=== PATIENT | female | born 1970 | race Caucasian/White ===

== ENCOUNTER 2020-01-04 20:53 | Emergency (ER) | payer SELFPAY ==
[~2020-01-04] VITALS: Ht 167.6 cm; Wt 74.8 kg
[2020-01-04] MEDS ORDERED: OLANZAPINE 10 MG VIAL IM ONE ×2 (20:59→21:00)
[2020-01-04] MEDS ORDERED: LORAZEPAM INJ 2 MG/ML VIAL ONE (20:59)
[2020-01-04] MEDS ORDERED: LORAZEPAM INJ 2 MG/ML VIAL IM ONE (21:00)
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
--- NOTE | 2020-01-04 21:04 | NUR ---
PT REC'D MEDICATION ORDERED.
--- NOTE | 2020-01-04 21:47 | NUR ---
INFORMATION TECHNOLOGY ASSISTANT IS AT THE BEDSIDE AND BLOOD HAS BEEN DRAWN.
[2020-01-04 21:51] LABS: BASOPHILS % (AUTO) 0.6 % (0.0-2.0); EOSINOPHILS % (AUTO) 1.8 % (0.0-6.0); HEMATOCRIT 39 % (33-45); HEMOGLOBIN 12.6 g/dL (11.5-14.8); LYMPHOCYTES # (AUTO) 1.1 /CMM (0.8-4.8); LYMPHOCYTES % (AUTO) 15.2 % (20.0-44.0); MEAN CORPUSCULAR HGB CONC 32 g/dl (31.0-36.0); MEAN CORPUSCULAR VOLUME 91 fL (82-100); MONOCYTES # (AUTO) 0.6 /CMM (0.1-1.30); MONOCYTES % (AUTO) 8.5 % (2.0-12.0); NEUTROPHILS # (AUTO) 5.5 /CMM (1.8-8.9); NEUTROPHILS % (AUTO) 73.9 % (43.0-81.0); PLATELET COUNT (AUTO) 253 /CMM (150-450); WHITE BLOOD COUNT (AUTO) 7.5 K/uL (4.3-11.0)
[2020-01-04 22:07] LABS: CALCIUM, SERUM 8.6 mg/dL (8.5-10.1); CARBON DIOXIDE 20 mmol/L (21-32); CHLORIDE 108 mmol/L (98-107); GLUCOSE 105 mg/dL (74-106); POTASSIUM 3.3 mmol/L (3.5-5.1); SODIUM SERUM 145 mmol/L (136-145); UREA NITROGEN, BLOOD 11 mg/dL (7-18)
[2020-01-04 22:13] LABS: ALANINE AMINOTRANSFERASE 21 U/L (12-78); ALBUMIN 3.6 g/dL (3.4-5.0); ALCOHOL, BLOOD 179 mg/dL (0-0); ALKALINE PHOSPHATASE 69 U/L (46-116); ASPARTATE AMINOTRANSFERASE 22 U/L (15-37); BILIRUBIN,DIRECT 0.1 mg/dL (0.0-0.2); BILIRUBIN,TOTAL 0.3 mg/dL (0.2-1.0); SALICYLATE 4.8 mg/dL (2.8-20.0); TOTAL PROTEIN, SERUM 7.6 g/dL (6.4-8.2)
[2020-01-04 22:16] LABS: ACETAMINOPHEN < 2 ug/ml (10-30)
--- NOTE | 2020-01-04 22:43 | NUR ---
STRAIGHT CATH DONE. APPROX 500ML DARK YELLOW URINE OUTPUT NOTED. SAMPLE SENT TO THE LAB.
[2020-01-04 22:55] LABS: APPEARANCE,URINE Clear (CLEAR); BILIRUBIN,URINE Negative (NEGATIVE); BLOOD, URINE Negative Ery/uL (NEGATIVE); COLOR,URINE Yellow (YELLOW); KETONES,URINE Trace (NEGATIVE); LEUKOCYTE ESTERASE ,URINE Negative (NEGATIVE); NITRITE, URINE Negative (NEGATIVE); PH,URINE 5.5 (5.0-8.0); PROTEIN,URINE 30 mg/dl (NEGATIVE); UGLUCOSE Negative (NEGATIVE); UROBILINOGEN,URINE 0.2 EU/dL (0.2)
--- NOTE | 2020-01-04 23:19 | NUR ---
PT APPEARS TO BE RESTING COMFORTABLY WITH NO S/S OF PAIN OR DISTRESS. PT IS ON THE MONITOR AND POX. WILL CONTINUE TO MONITOR THE PT.
--- NOTE | 2020-01-05 00:42 | NUR ---
PER ART, PLANT TAXONOMIST, WILL EVALUATE PATIENT IN THE MORNING
--- NOTE | 2020-01-05 01:59 | NUR ---
PT ASLEEP. VSS. PLACED ON MONITOR AND PULSE OX. EASILY AROUSED.
--- NOTE | 2020-01-05 03:23 | NUR ---
PT SLEEPING COMFORTABLY. VSS. RR EVEN AND UNLABORED W/ NAD NOTED. SITTER AT BEDSIDE FOR SAFETY. WILL CONTINUE TO MONITOR
--- NOTE | 2020-01-05 04:39 | NUR ---
PT SLEEPING COMFORTABLY. VSS. RR EVEN AND UNLABORED W/ NAD NOTED. SITTER AT BEDSIDE FOR SAFETY. WILL CONTINUE TO MONITOR
--- NOTE | 2020-01-05 06:48 | NUR ---
PT AWAKE AND RESTING COMFORTABLY. VSS. RR EVEN AND UNLABORED W/ NAD NOTED. SITTER AT BEDSIDE FOR SAFETY. WILL CONTINUE TO MONITOR
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
--- NOTE | 2020-01-05 14:44 | NUR ---
PT. VERBALIZED UNDERSTANDING OF AFTERCARE INSTRUCTIONS.Patient discharged to home in stable condition. Written and verbal after care instructions given. Patient verbalizes understanding of instruction.
[2020-01-05 14:47] VITALS: BP 122/71
== END 2020-01-05 14:47 | disposition home or self-care (01) ==
LOC: ER 20:53
DX: F23 Brief psychotic disorder (principal); R45.1 Restlessness and agitation
CPT/HCPCS: 36415; 80048; 80076; 80305; 80307; 80329; 81001; 85025; 96372 ×2; 99291; G0480; J2060; J3490; 81000-TC